=== PATIENT | female | born 1990 | race Caucasian/White ===

== ENCOUNTER 2021-07-16 16:32 | Emergency (ER) | payer BC ==
[~2021-07-16] VITALS: Ht 172.7 cm; Wt 82.0 kg
[2021-07-16] MEDS ORDERED: AMOX-424 MT (20:08)
[2021-07-16 20:15] VITALS: BP 124/81
== END 2021-07-16 20:17 | disposition home or self-care (01) ==
LOC: ER 16:32
DX: S60.473A Other superficial bite of left middle finger, initial encounter (principal); W54.0XXA Bitten by dog, initial encounter; Y93.89 Activity, other specified; Y92.89 Other specified places as the place of occurrence of the external cause; Y99.8 Other external cause status
CPT/HCPCS: 73140; 99283